=== PATIENT | female | born 1995 ===

== ENCOUNTER 2019-04-05 18:48 | Emergency (ER) | payer MEDICAID ==
[~2019-04-05] VITALS: Ht 165.1 cm; Wt 73.2 kg
[2019-04-05 17:25] VITALS: Ht 165.1 cm; Wt 73.2 kg
[2019-04-05 18:33] LABS: BASOPHILS 0.1 % (0-2); EOSINOPHILS 0 % (0-7); HEMATOCRIT 37.5 % (36.0-48.0); HEMOGLOBIN 13.8 g/dL (12-16); IMMATURE GRANULOCYTES 0.5 % (0-5); LYMPHOCYTES 6.3 % (15-50); MCH 31.8 pg (26.0-34.0); MCHC 36.8 g/dL (31.0-37.0); MCV 86.4 fL (80.0-100.0); MEAN PLATELET VOLUME 9.8 fL (7.4-10.4); MONOCYTES 3.7 % (2-11); NEUTROPHILS 89.4 % (40-80); PLATELET COUNT 319 10x3/uL (130-400); RBC 4.34 10x6/uL (4.00-5.40); RDW 12.1 % (11.5-14.5); WBC 12.3 10x3/uL (4.8-10.8)
[2019-04-05 18:47] LABS: APPEARANCE HAZY (CLEAR); COLOR YELLOW (YELLOW); SPECIFIC GRAVITY 1.025 (1.005-1.020)
[2019-04-05 18:48] LABS: BILIRUBIN NEGATIVE (NEGATIVE); GLUCOSE NEGATIVE (NEGATIVE); KETONE LARGE mg/dL (NEGATIVE); NITRITE NEGATIVE (NEGATIVE); PROTEIN TRACE mg/dL (NEGATIVE); UROBILINOGEN NORMAL (NORMAL)
[~2019-04-05 18:48] MED LIST: PRENAVITE1 TAB PO
[2019-04-05 18:50] LABS: BACTERIA FEW /hpf (NONE SEEN); EPITHELIAL CELLS 0-5 /hpf (0-5); MUCUS <1+ /lpf (NONE SEEN); RED CELLS - URINE OCC /hpf (0-5); WHITE CELLS - URINE 0-5 /hpf (0-5)
[2019-04-05 19:04] LABS: ALBUMIN 3.7 g/dL (3.4-5.0); ALKALINE PHOSPHATASE 77 U/L (46-116); ALT (SGPT) 18 U/L (10-68); BILIRUBIN - TOTAL 0.38 mg/dL (0.2-1.3); CALC OSMOLALITY 268 mosm/kg (275-300); CHLORIDE - SERUM 100 mmol/L (98-107); CREATININE - SERUM 0.5 mg/dL (0.6-1.3); GLUCOSE 104 mg/dL (74-106); POTASSIUM - SERUM 3.5 mmol/L (3.5-5.1); SODIUM 135 mmol/L (136-145); UREA NITROGEN 9 mg/dL (7-18); eGFR NON AFRICAN AMERICAN > 90 mL/min (90-120)
[2019-04-05 19:27] LABS: HCG - QUANTITATIVE (MATERNAL) 44022 mIU/mL
[2019-04-05] MEDS ORDERED: ZOFRAN8 MG PO (19:27)
[2019-04-05 23:40] VITALS: BP 136/74
== END 2019-04-05 23:41 | disposition home or self-care (01) ==
LOC: D.ER 18:48 → EDSTATUS 18:48 → D.ER 23:41
PROVIDERS: Family Medicine
DX: O26.891 Other specified pregnancy related conditions, first trimester (principal); Z3A.14 14 weeks gestation of pregnancy; K52.9 Noninfective gastroenteritis and colitis, unspecified; R11.10 Vomiting, unspecified